=== PATIENT | female | born 1960 | race African-American/Black ===

== ENCOUNTER 2017-08-27 09:25 | Emergency (ER) | payer SELFPAY ==
[2017-08-27 10:18] LABS: #Basophils 0.1 thou/uL (0.0-0.2); #Eosinphils 0.1 thou/uL (0.0-0.7); #Lymphocytes 3.6 thou/uL (1.20-3.40); #Monocytes 0.6 thou/uL (0.11-0.59); #Neutrophils 4.6 thou/uL (1.40-6.50); %Basophils 1.5 % (0.0-1.0); %Eosinophils 0.7 % (0.0-10.0); %Lymphocytes 39.8 % (21.0-51.0); %Monocytes 6.9 % (0.0-10.0); Mean Corpuscular HGB CONC 32.5 g/dL (32.0-36.0); Mean Corpuscular Hemoglobin 29.2 pg (27.0-31.0); Mean Corpuscular Volume 89.9 fl (81.0-99.0); Mean Platelet Volume 7.9 fL (7.4-10.4); Platelet Count 262 thou/uL (130-400); RBC Distribution Width 15.2 % (11.5-14.5); Red Blood Cell (RBC) Count 4.79 mill/uL (4.20-5.40)
[2017-08-27 10:21] LABS: Bilirubin Negative (Negative); Blood, Urine Moderate (Negative); Clarity CLEAR (Clear); Glucose, Urine (Dipstick) 500 mg/dL (Negative); Leukocyte Negative (Negative); Nitrite Negative (Negative); Protein, Urine (Dipstick) Negative (Neg-Trace); Specific Gravity, Urine 1.026 (1.002-1.036)
[2017-08-27 10:24] LABS: Bacteria/HPF 1+ HPF (None Seen); Hyaline Casts/LPF 0-3 HYALINE CAST LPF (0-3 Hyaline); Squamous Epithelial 0-3 HPF (0-3); WBC/HPF 0-3 HPF (0-3)
[2017-08-27 10:32] LABS: ALT (SGPT) 17 U/L (8-55); AST (SGOT) 16 U/L (5-34); Albumin 4.3 g/dL (3.5-5.0); Alkaline Phosphatase 79 U/L (40-150); Anion Gap 13 mmol/L (10-20); BUN (Urea Nitrogen) 11 mg/dL (9.8-20.1); Bilirubin, Total 0.4 mg/dL (0.2-1.2); Calc. Creatinine Clearance 0 mL/min (70-130); Calcium 9.4 mg/dL (7.8-10.44); Carbon Dioxide 25 mmol/L (22-29); Chloride 106 mmol/L (98-107); Estimated GFR-MDRD Greater than 90; Globulin 3.7 g/dL (2.4-3.5); Glucose 125 mg/dL (70-105); Potassium 3.5 mmol/L (3.5-5.1); Sodium 140 mmol/L (136-145)
[2017-08-27 10:35] LABS: CKMB 1.8 ng/mL (0-6.6); Troponin I Less than 0.010 ng/mL (< 0.028)
--- NOTE | 2017-08-27 11:00 | RAD ---
CHEST ONE VIEW: History: Pain. Comparison: 05-25-15 FINDINGS: Lungs are clear. No pneumothorax or effusion. Cardiac silhouette and mediastinum contours are within normal limits. Degenerative disease of the right greater than left acromioclavicular joints. Subacromial spur is pre sent on the right. IMPRESSION: No acute intrathoracic abnormality. POS: [facility]
== END 2017-08-27 11:17 | disposition home or self-care (01) ==
LOC: ERS 09:25
DX: R07.89 Other chest pain (principal); E11.65 Type 2 diabetes mellitus with hyperglycemia; M19.90 Unspecified osteoarthritis, unspecified site; F17.210 Nicotine dependence, cigarettes, uncomplicated; Z79.84 Long term (current) use of oral hypoglycemic drugs
CPT/HCPCS: 36416; 71045; 80053; 81003; 81015; 82553; 84484; 85025; 93005

== ENCOUNTER 2020-02-14 10:38 | Emergency (ER) | payer SELFPAY ==
[2020-02-14] MEDS ORDERED: Cyclobenzaprine 10 MG TAB ONE (11:11)
[2020-02-14] MEDS ORDERED: Ibuprofen 200 MG TAB ONE (11:11)
--- NOTE | 2020-02-14 11:57 | CT ---
CT LUMBAR SPINE WITHOUT CONTRAST: INDICATION: Fall with injury to back. Low back pain. FINDINGS: Lumbar vertebrae maintain normal height and alignment. There is no evidence of acute compression fra cture. Prominent degenerative changes are present. Large bridging osteophytes are seen anterolatera lly on the right in the lower thoracic and upper lumbar spine at T11-T12 and T12-L1. Lumbar disk spa cely are maintained. There is a slight anterolisthesis at L4-5 measured at 2-3 mm. No evidence of spondylolysis. Findings at each disk space are described. At L1-2, mild diffuse disk bulge. No evidence of significant central canal or foraminal stenosis. At L2-3, broad-based disk bulge flattens the thecal sac. Moderate facet and ligamentous hypertrophy. Mild to moderate central canal stenosis. Disk-osteophyte complex projects laterally to the left an d may contact the exiting left L2 nerve root. At L3-4, diffuse disk bulge. Moderate facet and ligamentous hypertrophy. Mild to moderate central c anal stenosis. Mild right foraminal stenosis. At L4-5, slight anterolisthesis as noted above. Broad-based disk bulge. Prominent facet and ligamen tous hypertrophy. Mild central canal stenosis. No significant foraminal stenosis. At L5-S1, diffuse disk bulge. Pronounced facet hypertrophy. No significant central canal stenosis. Mild bilateral foraminal encroachment due to the disk bulge and facet hypertrophy. IMPRESSION: Degenerative disk changes with disk bulges at all levels. No evidence of acute fracture or compressi on. POS: [facility]
== END 2020-02-14 12:36 | disposition home or self-care (01) ==
LOC: ERS 10:38
DX: S30.0XXA Contusion of lower back and pelvis, initial encounter (principal); M47.9 Spondylosis, unspecified; E11.9 Type 2 diabetes mellitus without complications; F17.210 Nicotine dependence, cigarettes, uncomplicated; Z79.84 Long term (current) use of oral hypoglycemic drugs; W19.XXXA Unspecified fall, initial encounter
CPT/HCPCS: 72131